=== PATIENT | male | born 1965 | race Caucasian/White ===

== ENCOUNTER 2020-02-27 16:30 | Outpatient (CLI) | payer OTHER, SELFPAY ==
--- NOTE | 2020-02-27 | XR_ITS ---
WS: [id number] XR lumbar spine 6V w f/e [id number] REASON FOR EXAM: ACUTE RT SIDE LOW BACK PAIN W/O SCIATICA FINDINGS: Lumbar spine series 8 views. The thoracolumbar rotoscoliosis convex to the left. In the oblique projection no evidence of spondylo lysis. There is no evidence of spondylolisthesis. The disc spaces and the vertebral body heights are normal. The lumbosacral angle was normal. Flexion and extension views were essentially normal. XR/XR lumbar spine 6V w f/e [id number] IMPRESSION: The lumbar spine series.
== END 2020-02-27 16:31 | disposition home or self-care (01) ==
LOC: RAD 16:35
PROVIDERS: PCP Family Medicine; Visit Provider Nurse Practitioner Family
DX: M54.5 Low back pain (principal)
CPT/HCPCS: 72114

== ENCOUNTER 2020-04-04 14:54 | Outpatient (CLI) | payer OTHER, SELFPAY ==
--- NOTE | 2020-04-04 15:03 | CT_ITS ---
WS: [id number] CT LUMBAR SPINE TECHNIQUE: Noncontrast CT of the lumbar spine with coronal and sagittal reformatted images. CLINICAL INFORMATION: LOW BACK PAIN COMPARISON: MRI 6013 DLP: 2027.[address] scans at [facility] use at least one of these dose optimization techniques: automat ed exposure control; mA and/or kV adjustment per patient size (includes targeted exams where dose is matched to clinical indication); or iterative reconstruction. FINDINGS: Mild lumbar curve convex left. No acute compression fractures. L1-L2: Tiny left subarticular protrusion. Mild left foraminal narrowing. Spinal canal and right isis en are patent. L2-L3: Shallow central broad-based protrusion. Mild central canal stenosis. Impingement on the subart icular recess bilaterally right greater than left. This is similar in appearance to 2013. Moderate fa cet arthropathy. Foramen are patent. L3-L4: Mild annular bulging. Spinal canal and foramen are patent. Moderate facet arthropathy. L4-L5: Shallow right pericentral protrusion. Impingement on traversing right L5 nerve root with mild central canal stenosis. Foramen are patent. Mild facet arthropathy. L5-S1: Mild disc bulging with a tiny central protrusion. Slight effacement of ventral thecal sac. Spi nal canal and foramen are patent. Mild facet arthropathy. Visualized pelvic bony structures: Normal. Paravertebral soft tissues: Normal. CT/CT lumbar spine wo con* [id number] IMPRESSION: 1. Mild lumbar curve. No acute compression. 2. Mild central canal stenosis L2-3 with impingement subarticular recess bilat erally. This is similar to 2013. 3. Mild central canal stenosis L3-L4 with a small right pericentral protrusion . Slight impingement traversing right L5 nerve root. 4. Otherwise mild foraminal narrowing described above
== END 2020-04-04 14:55 | disposition home or self-care (01) ==
LOC: RADWPI 14:59
PROVIDERS: Family Provider Family Medicine; PCP Family Medicine; Visit Provider Nurse Practitioner
DX: M48.061 Spinal stenosis, lumbar region without neurogenic claudication (principal); M54.5 Low back pain; M25.80 Other specified joint disorders, unspecified joint
CPT/HCPCS: 72131

== ENCOUNTER 2024-04-28 10:42 | Emergency (ER) | payer OTHER, SELFPAY ==
[2024-04-28 11:18] VITALS: BP 135/87; PULSE 82; RESP 18; O2SAT 93; BMI 34.0
--- NOTE | 2024-04-28 11:20 | XRR_ITS ---
PROCEDURE INFORMATION: Exam: XR Left Elbow Exam date and time: 04/28/2024 11:27 AM Age: 58 years old Clinical indication: Left; Patient HX: Lt elbow pain/swelling post pinning injury TECHNIQUE: Imaging protocol: Radiologic exam of the left elbow. Views: 3 or more views. COMPARISON: No relevant prior studies available. FINDINGS: Bones/joints: Rotated lateral views. Possible small elbow joint effusion. Soft tissues: Normal. XR/XR elbow LT min 3V* [id number] IMPRESSION: No acute fracture or dislocation.
[2024-04-28 11:24] VITALS: BP 135/87; PULSE 81; RESP 18; O2SAT 94
--- NOTE | 2024-04-28 11:24 | ED_ITS ---
HPI - Extremity Problem General: Chief complaint: Extremity Injury, Upper Stated complaint: lft arm injury Time Seen by Provider: 04/28/24 10:55 Source: patient Mode of arrival: ambulatory Limitations: no limitations History of Present Illness: 58-year-old male who states he was weed eating states he turned to hit a metal pole and twisted his left arm and felt a pop in his elbow. States been having pain in his bicep and elbow since then. Is worse with motion denies any other injuries he rates his pain a 3 out of 10 currently Associated symptoms: Deny chest pain, fever(s) or rash Related Data Allergies Allergy/AdvReac Type Severity Reaction Status Date / Time codeine Allergy ADR-Vomitin Verified 04/28/24 11:22 g Review of Systems Const: Denies: fever(s), chills, body aches or change in appetite ENMT: Denies: throat pain or dental pain Card: Denies: chest pain Resp: Denies: dyspnea GI: Denies: abdominal pain, nausea, vomiting or diarrhea Musc: Reports: extremity pain; Denies: neck pain or back pain Skin/Breast: Denies: rash Neuro: Denies: headache(s) Physical Exam Const: COMMON NORMALS: no acute distress, patient oriented x3 and healthy appearing HENMT: COMMON NORMALS: normocephalic and atraumatic HEAD & SCALP: normocephalic and atraumatic Neck/C-Spine: COMMON NORMALS: full ROM and supple Chest: COMMONS NORMALS: normal inspection of the chest Resp: COMMON NORMALS: normal respiratory effort Cardio: COMMON NORMALS: regular rate, regular rhythm and No murmurs present (Cardio) RATE: regular rate RHYTHM: regular rhythm Extremity: COMMON NORMALS: normal to inspection NARRATIVE EXTREMITY EXAM: Tenderness noted left elbow no obvious deformity distal pulse intact Neuro: COMMON NORMALS: patient oriented x3, moves all extremities and no focal motor deficits Psych: COMMON NORMALS: mental status grossly normal Skin: COMMON NORMALS: no rashes or lesions noted and no wounds GENERAL SKIN EXAM: no rashes or lesions noted Course Vital Signs: Vital signs: Vital Signs Temperature 97.8 F 04/28/24 11:29 Pulse Rate 81 04/28/24 11:24 Respiratory Rate 18 04/28/24 11:24 Blood Pressure 135/87 04/28/24 11:24 Pulse Oximetry 94 04/28/24 11:24 Oxygen Delivery Me thod Room Air 04/28/24 11:24 MDM - Extremity (Nontraumatic) Medical Decision Making Patient presents with left elbow injury on exam he has a possible biceps tendon rupture as exam showed no other abnormality x-ray is normal he stable for discharge we will get him follow-up with orthopedics return if worsening. Medical Records I reviewed the patient's medical records. XR interpretation done by ED provider, pending radiology final review ED provider radiology interpretation(s): xr L elbow: no acute fx Discharge Plan Discharge Patient Disposition: Home Clinical Impression: Injury of elbow, left Qualifiers: Encounter type: initial encounter Qualified Code(s): S59.902A - Unspecified injury of left elbow, initial encounter Condition: Stable Discharge Orders: Discharge ED (Routine); Ordered 04/28/24 Ordered By: Jaylin Romero Referrals: Brando Smith DO [Physician] - 1-3 days Darrion Faith MD [Primary Care Provider] - Discharge Diet: Advance as tolerated Discharge Activity: Resume usual activity Patient Instructions: Biceps Tendon Rupture Coding Level of Care Code ED [employer] Technician for Jeaneth Clark
[2024-04-28] MEDS: HYDROcodone-acetaminophen 5-325 mg Tablet 1 TAB PO (11:28)
[2024-04-28 11:29] VITALS: TEMP 36.6
--- NOTE | 2024-04-28 11:50 | PC.NURSE ---
this nurse assumed pt care at 1145.
[2024-04-28 12:03] VITALS: BP 131/84; PULSE 79; RESP 16; TEMP 36.6; O2SAT 95
--- NOTE | 2024-04-30 12:24 | DCPLANNER ---
messaged ortho for er f/u
== END 2024-04-28 12:02 | disposition home or self-care (01) ==
PROVIDERS: Emergency Provider Emergency Medicine; PCP Family Medicine
DX: S59.902A Unspecified injury of left elbow, initial encounter (principal); W22.8XXA Striking against or struck by other objects, initial encounter
CPT/HCPCS: 73080; 99283